=== PATIENT | female | born 1975 | race Caucasian/White ===

== ENCOUNTER 2017-05-24 22:07 | Emergency (ER) | payer OTHER ==
[~2017-05-24] VITALS: Ht 160 cm; Wt 90.7 kg
== END 2017-05-24 23:50 | disposition home or self-care (01) ==
LOC: CED 22:07 → CFTX 23:21 → CED 23:21
DX: J06.9 Acute upper respiratory infection, unspecified (principal); R56.9 Unspecified convulsions; Z87.891 Personal history of nicotine dependence
CPT/HCPCS: 84703; 87651; 99283